=== PATIENT | male | born 1955 | race Hispanic/Latino ===

== ENCOUNTER 2017-06-25 16:17 | Emergency (ER) | payer BC ==
[~2017-06-25] VITALS: Ht 172.7 cm; Wt 90.7 kg
[2017-06-25] MEDS ORDERED: MELOXICAM7.5 MG PO (17:04)
== END 2017-06-25 17:07 | disposition home or self-care (01) ==
LOC: FSED 16:17
DX: S63.521A Sprain of radiocarpal joint of right wrist, initial encounter (principal); X50.0XXA Overexertion from strenuous movement or load, initial encounter; Y93.89 Activity, other specified; Y92.008 Other place in unspecified non-institutional (private) residence as the place of occurrence of the external cause; E78.5 Hyperlipidemia, unspecified
CPT/HCPCS: 99283